=== PATIENT | female | born 1975 | race Caucasian/White ===

== ENCOUNTER → 2020-11-10 09:32 | Outpatient (BNVA) | payer SELFPAY | PROVIDERS: Family Provider Nurse Practitioner; PCP Nurse Practitioner; Visit Provider Nurse Practitioner Family | DX: J02.9 Acute pharyngitis, unspecified (principal); J30.89 Other allergic rhinitis | CPT/HCPCS: 87071; 87880 ==

== ENCOUNTER → 2021-05-25 14:06 | Outpatient (BNVA) | payer SELFPAY | PROVIDERS: Family Provider Nurse Practitioner; PCP Nurse Practitioner; Visit Provider Nurse Practitioner Family | DX: J40 Bronchitis, not specified as acute or chronic (principal) | CPT/HCPCS: 87400 ==

== ENCOUNTER 2021-12-13 10:00 | Outpatient (CLI) | payer SELFPAY ==
--- NOTE | 2021-12-13 10:22 | XR_ITS ---
WS: [id number] Exam: XR lumbar spine 2-3V* [id number] Date/Time of Exam: 12/13/2021 10:28 AM Reason For Exam: W19.XXXA - Unspecified fall, initial encounter Comparison 11/08/2009 No fracture or dislocation. Degenerative narrowing of the L5-S1 disc. Slight spondylosis. Posterior e lements are intact. XR/XR lumbar spine 2-3V* [id number] IMPRESSION: 1. No fracture or malalignment. 2. Degenerative narrowing of the L5-S1 disc.
--- NOTE | 2021-12-13 10:22 | XR_ITS ---
WS: [id number] Exam: XR hip RT 2-3V wo/w pel* [id number] Date/Time of Exam: 12/13/2021 10:28 AM Reason For Exam: W19.XXXA - Unspecified fall, initial encounter No fracture or dislocation. The joint space is relatively well maintained. Unremarkable soft tissues. XR/XR hip RT 2-3V wo/w pel* [id number] IMPRESSION: 1. No fracture or dislocation.
== END 2021-12-13 10:01 | disposition home or self-care (01) ==
PROVIDERS: PCP Nurse Practitioner Family; Visit Provider Nurse Practitioner Family
DX: M25.551 Pain in right hip (principal); M54.50 Low back pain, unspecified; W19.XXXA Unspecified fall, initial encounter; Y92.009 Unspecified place in unspecified non-institutional (private) residence as the place of occurrence of the external cause
CPT/HCPCS: 72100; 73502

== ENCOUNTER → 2022-07-24 10:33 | Outpatient (BNVA) | payer SELFPAY | PROVIDERS: PCP Nurse Practitioner Family; Visit Provider Nurse Practitioner Family | DX: J02.9 Acute pharyngitis, unspecified (principal) | CPT/HCPCS: 87070; 87880 ==

== ENCOUNTER 2024-07-01 11:31 | Emergency (ER) | payer SELFPAY ==
[2024-07-01 11:32] VITALS: BP 102/57; PULSE 60; TEMP 36.2; O2SAT 96
--- NOTE | 2024-07-01 11:35 | ECG_ITS ---
[facility]: 2024-[facility]01 Pat Name: Marcella Brumfield Department: Room: Gender: Female [employer] Analyst: : 1975 Requested By: Marin Robles Order Number: [id number] Reading MD: ANDRAE HALL Measurements Intervals [place] Rate: 60 P: 14 IA: 171 QRS: 2 QRSD: 98 T: 68 QT: 430 QTc: 431 Interpretive Statements SINUS RHYTHM NONSPECIFIC T-WAVE ABNORMALITY No previous ECG available for comparison Electronically Signed On 07-02-2024 23:39:52 CDT by ANDRAE HALL [email or web address]
--- NOTE | 2024-07-01 11:57 | XR_ITS ---
WS: [id number] Exam: XR chest 1V portable [id number] Date/Time of Exam: 07/01/2024 12:17 PM Reason For Exam: syncope Comparison 10/02/2005. Lungs are clear and fully expanded. Normal cardiomediastinal silhouette and regional bony structures. No pleural effusion. XR/XR chest 1V portable [id number] IMPRESSION: 1. Normal chest.
[2024-07-01 12:17] LABS: Basophils % 0.2 %; Eosinophils # 0.2 10^3/uL (0.0-0.8); Eosinophils % 1.9 %; Hematocrit 39.2 % (36-47); Lymphocytes % 23.4 %; Mean Corpuscular HGB Conc 34.2 g/dL (30-55); Mean Corpuscular Hemoglobin 32.8 pg (27-33); Mean Corpuscular Volume 95.8 fl (85-98); Mean Platelet Volume 10.2 fL (7.4-10.4); Monocytes # 0.3 10^3/uL (0.2-0.9); Monocytes % 3.1 %; Neutrophils # 6.13 10^3/uL (1.8-7.7); Neutrophils % 71.2 %; Nucleated Red Blood Cells % 0 %; Platelet Count 227 10^3/cmm (157-399); Red Blood Count 4.09 10^6/uL (3.85-5.65); Red Cell Distribution Width 12.4 % (12.1-15.1); White Blood Count 8.62 10^3/uL (3.29-11.43)
[2024-07-01 12:40] LABS: Alanine Aminotransferase 11 U/L (0-33); Albumin Level 3.5 g/dL (3.5-5.2); Alkaline Phosphatase 94 U/L (35-105); Anion Gap 16.1 (5-19); Aspartate Amino Transferase 12 U/L (0-32); Blood Urea Nitrogen 14 mg/dL (6-20); Calcium 8.5 mg/dL (8.5-10.5); Carbon Dioxide 22 mmol/L (22-29); Chloride 107 mmol/L (98-107); Creatinine Clr Calc Pharmacy 80.7044; Globulin 2.3 g/dL (1.3-4.6); Glucose 129 mg/dL (65-115); Osmolality Calculated 294 mOsm/kg (285-295); Potassium 4.1 mmol/L (3.5-5.1); Sodium 141 mmol/L (136-145); Total Bilirubin 0.4 mg/dL (0.15-1.2); Total Protein 5.8 g/dL (6.6-8.7)
[2024-07-01] MEDS: sodium chloride 0.9% 1,000 ML 999 ML IV (12:53)
[2024-07-01 12:56] VITALS: BP 98/67; PULSE 57; O2SAT 98
--- NOTE | 2024-07-01 13:17 | ED_ITS ---
HPI - Syncope 2 General: Chief Complaint: Syncope Stated Complaint: Syncopal episode Time Seen by Provider: 07/01/24 11:34 History of Present Illness: This patient is a 49-year-old white female who presents to the emergency department after a syncopal episode. Patient states she was getting red light therapy for her skin. She states she sat up on the bench and then felt dizzy and passed out. She was brought in by EMS. She states she has not had any chest pain or shortness of breath. She did have some nausea and some diaphoresis. She states she has no chronic medical problems. She is on no medications. Associated symptoms: Reports nausea Related Data Home Medications ?Medication ?Instructions ?Recorded ?Confirmed No Known Home Medications 07/01/2406/18 Allergies Allergy/AdvReac Type Severity Reaction Status Date / Time No Known Allergies Allergy Verified 05/13/24 09:00 Review of Systems 2 General: Reports: 10 or more systems reviewed and unremarkable except in HPI and below Const: Reports: diaphoresis Card: Reports: syncope GI: Reports: nausea PFSH ED 2 PFSH: Medical History Cigarette smoker Depo-Provera contraceptive status History of pneumonia Surgical History Hx of section 2000 Family History Mother Dementia Father Hypertension Stroke CAD (coronary artery disease) Bleeding disorder Blood clot Denies family history of Diabetes Cancer Social History Smoking and tobacco/nicotine status: never used tobacco/nicotine Second hand smoke exposure: No Alcohol intake: never Substance/Drug Use: never Adopted: No Caregiver/support person: No Lives independently: Yes Household members: spouse and children Housing: House Marital status: Number of children: 1 Highest education level completed: High School Graduate Current occupational status: unemployed Do you think of yourself as: Straight/Heterosexual Current gender identity: Female Female Reproductive History: Para: 1 Spontaneous abortions: No Physical Exam 2 Const: COMMON NORMALS: no acute distress, patient oriented x3 and no limitations GENERAL APPEARANCE: cooperative and comfortable HENMT: COMMON NORMALS: normocephalic, atraumatic, Normal nasal mucous membranes and turbinates present, moist oral mucous membranes and oropharynx normal HEAD & SCALP: normal to inspection, normocephalic and atraumatic F AYE & SINUS: normal facial exam NOSE: Normal nasal mucous membranes and turbinates present Eye: COMMON NORMALS: Equal, round and reactive pupils present, EOMs intact bilaterally and conjunctivae normal GENERAL EYE: appearance normal, both eyes and all related structures CONJUNCTIVA: Yes conjunctivae normal PUPIL: Yes Equal, round and reactive pupils present Neck/C-Spine: COMMON NORMALS: supple and no JVD Chest: COMMONS NORMALS: normal inspection of the chest Resp: COMMON NORMALS: normal respiratory effort and clear to auscultation bilaterally AUSCULTATION: clear to auscultation bilaterally Cardio: COMMON NORMALS: no JVD, regular rate, regular rhythm, No gallops present (Cardio), No murmurs present (Cardio) and No rub (Cardio) RATE: r egular rate RHYTHM: regular rhythm GI: COMMON NORMALS: Normal to inspection, nondistended, normoactive bowel sounds present, Soft to palpation and non-tender AUSCULTATION: Yes normoactive bowel sounds PALPATION: Yes Soft to palpation : COMMON NORMALS: Yes no CVA tenderness BLADDER/KIDNEY EXAM: Yes no CVA tenderness Back/Pelvis: COMMON NORMALS: no CVA tenderness and thoracic and lumbar spine normal to inspection Extremity: COMMON NORMALS: normal to inspection Neuro: COMMON NORMALS: patient oriented x3 and CN's II-XII intact bilaterally Psych: COMMON NORMALS: mental status grossly normal, Normal thought process present and cooperative THOUGHT PROCESS: Normal thought process present Skin: COMMON NORMALS: no rashes or lesions noted, turgor normal and no jaundice GENERAL SKIN EXAM: no rashes or lesions noted and turgor normal Course 2 Vital Signs: Vital signs: Vital Signs Temperature 97.2 F L 07/01/24 11:32 Pulse Rate 57 L 07/01/24 12:56 Blood Pressure 98/67 07/01/24 12:56 Pulse Oximetry 98 07/01/24 12:56 Oxygen Delivery Me thod Room Air 07/01/24 12:56 MDM - Syncope Medical Decision Making EKG reveals normal sinus rhythm with no ST segment abnormalities. Chest x-ray was normal. CBC and CMP were normal. Patient was given a 1 L bolus of normal saline. Patient remained stable throughout her ER stay. This may have been a vasovagal episode which I discussed with her. I did recommend she follow-up with her primary care provider in 2 to 3 days for recheck. She was discharged in stable condition. Lab Data 07/01/24 12:13 07/01/24 12:13 Radiology Impressions Chest X-Ray 07/01/24 11:57 IMPRESSION: 1. Normal chest. Laboratory Results WBC 8.62 10^3/uL (3.29-11.43) 07/01/24 12:13 RBC 4.09 10^6/uL (3.85-5.65) 07/01/24 12:13 Hgb 13.40 g/dL (11.27-16.99) 07/01/24 12:13 Hct 39.2 % (36-47) 07/01/24 12:13 MCV 95.8 fl (85-98) 07/01/24 12:13 MCH 32.8 pg (27-33) 07/01/24 12:13 MCHC 34.2 g/dL (30-55) 07/01/24 12:13 RDW 12.4 % (12.1-15.1) 07/01/24 12:13 Plt Count 227 10^3/cmm (157-399) 07/01/24 12:13 MPV 10.2 fL (7.4-10.4) 07/01/24 12:13 Neut % (Auto) 71.2 % 07/01/24 12:13 Lymph % (Auto) 23.4 % 07/01/24 12:13 [place] % (Auto) 3.1 % 07/01/24 12:13 Eos % (Auto) 1.9 % 07/01/24 12:13 Baso % (Auto) 0.2 % 07/01/24 12:13 Neut # (Auto) 6.13 10^3/uL (1.8-7.7) 07/01/24 12:13 Lymph # (Auto) 2.0 10^3/uL (0.8-4.8) 07/01/24 12:13 [place] # (Auto) 0.3 10^3/uL (0.2-0.9) 07/01/24 12:13 Eos # (Auto) 0.2 10^3/uL (0.0-0.8) 07/01/24 12:13 Baso # (Auto) 0.0 10^3/uL (0.0-0.1) 07/01/24 12:13 Nucleated RBC % (auto) 0 % 07/01/24 12:13 Nucleated RBCs # 0.0 /100WBC 07/01/24 12:13 Sodium 141 mmol/L (136-145) 07/01/24 12:13 Potassium 4.1 mmol/L (3.5-5.1) 07/01/24 12:13 Chloride 107 mmol/L (98-107) 07/01/24 12:13 Carbon Dioxide 22 mmol/L (22-29) 07/01/24 12:13 Anion Gap 16.1 (5-19) 07/01/24 12:13 BUN 14 mg/dL (6-20) 07/01/24 12:13 Creatinine 1.1 mg/dL (0.5-0.9) H 07/01/24 12:13 GFR Calculation 53.0 mL/min (90-130) L 07/01/24 12:13 Glucose 129 mg/dL (65-115) H 07/01/24 12:13 Calculated Osmolality 294 mOsm/kg (285-295) 07/01/24 12:13 Calcium 8.5 mg/dL (8.5-10.5) 07/01/24 12:13 Total Bilirubin 0.4 mg/dL (0.15-1.2) 07/01/24 12:13 AST 12 U/L (0-32) 07/01/24 12:13 ALT 11 U/L (0-33) 07/01/24 12:13 Alkaline Phosphatase 94 U/L (35-105) 07/01/24 12:13 Total Protein 5.8 g/dL (6.6-8.7) L 07/01/24 12:13 Albumin 3.5 g/dL (3.5-5.2) 07/01/24 12:13 Globulin 2.3 g/dL (1.3-4.6) 07/01/24 12:13 All radiology interpretation(s) finalized by discharge Discharge Plan Discharge Patient Disposition: Home Clinical Impression: Vasovagal syncope Condition: Stable Prescriptions: No Action No Known Home Medications Discharge Orders: Discharge ED (Routine); Ordered 07/01/24 Ordered By: Marin Robles Referrals: Lisa Vasquez FNP-C [Primary Care Provider, Family Practice] Patient Instructions: Syncope Activity Restrictions/Additional Instructions: Follow-up with primary care physician in 2 to 3 days for recheck. Print Language: Egyptian Coding Level of Care Code ED Hemmer Chainstitch for Eufemia [place]
[2024-07-01 13:29] VITALS: BP 95/41; PULSE 63; O2SAT 94
== END 2024-07-01 13:31 | disposition home or self-care (01) ==
PROVIDERS: Emergency Provider Emergency Medicine; PCP Nurse Practitioner Family
DX: R55 Syncope and collapse (principal)
CPT/HCPCS: 36415; 71045; 80053; 85025; 93005; 99285; J7030

== ENCOUNTER → 2024-10-05 14:15 | Outpatient (BNVA) | payer SELFPAY | PROVIDERS: PCP Nurse Practitioner Family | DX: R35.0 Frequency of micturition (principal); N89.8 Other specified noninflammatory disorders of vagina | CPT/HCPCS: 81000; 81513; 87481; 87491; 87591; 87661 ==